=== PATIENT | female | born 1960 | race African-American/Black ===

== ENCOUNTER 2018-12-26 08:50 | Inpatient (IN) | payer OTHER ==
[~2018-12-26] VITALS: Ht 167.6 cm; Wt 52.2 kg
[2018-12-26] MEDS ORDERED: ONDANSETRON HCL 4MG/2ML INJ IV STA (09:34)
[2018-12-26] MEDS ORDERED: MORPHINE SULFATE 4 MG/ML CPJ (NOT FOR IM USE) IV STA (09:34)
[2018-12-26] MEDS ORDERED: SODIUM CHLORIDE 0.9% 1,000 ML IV ONE (09:34)
[2018-12-26 11:00] LABS: BASOPHILS % 0.3 % (0.0-2.0); EOSINOPHILS % 0.1 % (0.0-5.0); LYMPHOCYTES % 11.7 % (20.0-50.0); MEAN CORPUSCULAR HEMOGLOBIN 37.2 pg (28.0-32.0); MEAN CORPUSCULAR VOLUME 111.1 fL (81.0-99.0); MEAN PLATELET VOLUME 8.4 fl (7.4-10.4); MONOCYTES % 4.7 % (2.0-8.0); NEUTROPHILS % 83.2 % (40.0-76.0); PLATELET 70 x1000/uL (130-400); RED BLOOD CELL COUNT 2.43 mill/uL (4.2-5.4); RED CELL DISTRIBUTION WIDTH 13.6 % (11.6-14.6)
[2018-12-26 11:08] LABS: CHLORIDE 85 mEq/L (98-107)
[2018-12-26 11:14] LABS: PLATELET ESTIMATE DECREASED
[2018-12-26] MEDS ORDERED: PIPERACILLIN SODIUM/TAZOBACTAM 4.5 G in DEXT 5% WATER 100 ML IV SCH (12:00)
[2018-12-26] MEDS ORDERED: IPRATROPIUM/ALBUTEROL 0.5-3(2.5)MG/3ML NEB INH PRN (13:15)
[2018-12-26] MEDS ORDERED: LORAZEPAM 2MG/ML CPJ IV PRN (13:15)
[2018-12-26] MEDS ORDERED: CLONIDINE 0.1MG TABLET PO PRN (13:15)
[2018-12-26] MEDS ORDERED: ONDANSETRON HCL 4MG/2ML INJ IV PRN (13:15)
[2018-12-26] MEDS ORDERED: DIPHENHYDRAMINE 50MG/ML VIAL IV PRN (13:15)
[2018-12-26] MEDS ORDERED: HYDROMORPHONE HCL/PF 2MG/ML CPJ IV PRN (13:15)
[2018-12-26] MEDS ORDERED: MVI, ADULT NO.1 10 ML, FOLIC ACID 1 MG in SODIUM CHLORIDE 0.9% 1,000 ML IV NR ×3 (16:45)
[2018-12-26 17:58] LABS: VITAMIN B12 SERUM >2000 pg/mL pg/mL (211-911)
[2018-12-26 17:59] LABS: HEPATITIS B SURFACE ANTIGEN NEGATIVE
[2018-12-26 18:27] LABS: HEPATITIS A AB IGM NEGATIVE (NEGATIVE)
[2018-12-26 18:28] LABS: FOLIC ACID (FOLATE) SERUM > 20.00 ng/mL (>5.38)
[2018-12-26 20:00] VITALS: BP_SYST 100; BP_SYST 102; BP_DIAS 57; BP_DIAS 61
[2018-12-26] MEDS ORDERED: MAGNESIUM 4 G PREMIX 100 ML IV NR (21:00)
[2018-12-27] VITALS (7 sets, daily range): BP systolic 98–132; BP diastolic 53–82
[2018-12-27 07:58] LABS: BASOPHILS % 0.6 % (0.0-2.0); CHLORIDE 88 mEq/L (98-107); EOSINOPHILS % 1.7 % (0.0-5.0); HEMATOCRIT. 26.4 % (36.0-48.0); HEMOGLOBIN. 8.9 g/dL (12.0-16.0); LYMPHOCYTES % 12.1 % (20.0-50.0); MEAN CORPUSCULAR HEMOGLOBIN 36.8 pg (28.0-32.0); MEAN CORPUSCULAR VOLUME 108.8 fL (81.0-99.0); MONOCYTES % 4.8 % (2.0-8.0); NEUTROPHILS % 80.8 % (40.0-76.0); PLATELET 114 x1000/uL (130-400); RED BLOOD CELL COUNT 2.43 mill/uL (4.2-5.4); RED CELL DISTRIBUTION WIDTH 13.7 % (11.6-14.6)
[2018-12-27 08:05] LABS: AMYLASE 221 IU/L (25-115)
[2018-12-27] MEDS: PANTOPRAZOLE SODIUM 40 MG/VIAL IV SCH (09:32)
[2018-12-27] MEDS ORDERED: KCL 20MEQ/100ML PREMIX 100 ML IV NR ×2 (11:00→12:00)
[2018-12-27] MEDS: DEXT 5%/0.45% NACL 1000ML 1,000 ML IV SCH (13:56)
[2018-12-28] VITALS: BP 114/70
[2018-12-28] MEDS: DEXT 5%/0.45% NACL 1000ML 1,000 ML IV SCH ×3 (00:07→10:03)
[2018-12-28] MEDS: PIPERACILLIN/TAZ 2.25G PREMIX 50 ML IV SCH ×2 (01:00→10:03)
[2018-12-28 08:00] VITALS: BP 112/69
[2018-12-28] MEDS: PANTOPRAZOLE SODIUM 40 MG/VIAL IV SCH (10:03)
[2018-12-28 12:00] VITALS: BP 129/76
[2018-12-28 13:18] LABS: CHLORIDE 89 mEq/L (98-107)
[2018-12-28 13:26] VITALS: BP 129/76
[2018-12-28] MEDS: POTASSIUM CHLORIDE 20MEQ TABLET SR PO SCH ×3 (13:43→15:33)
== END 2018-12-28 16:10 | disposition home or self-care (01) | DRG 432 ==
LOC: ER 08:50 → 8WST 12:28 → EDBEDREQ 12:30 → ENRESERV 17:39
PROVIDERS: ADMIT Internal Medicine; ATTEND Internal Medicine
DX: K70.10 Alcoholic hepatitis without ascites (principal); K85.10 Biliary acute pancreatitis without necrosis or infection; K85.90 Acute pancreatitis without necrosis or infection, unspecified; E44.1 Mild protein-calorie malnutrition; Z68.1 Body mass index [BMI] 19.9 or less, adult; N17.9 Acute kidney failure, unspecified; K80.70 Calculus of gallbladder and bile duct without cholecystitis without obstruction; R74.0 Nonspecific elevation of levels of transaminase and lactic acid dehydrogenase [LDH]; E16.2 Hypoglycemia, unspecified; D53.9 Nutritional anemia, unspecified; I10 Essential (primary) hypertension; D75.89 Other specified diseases of blood and blood-forming organs; G62.9 Polyneuropathy, unspecified; J45.909 Unspecified asthma, uncomplicated; K57.90 Diverticulosis of intestine, part unspecified, without perforation or abscess without bleeding; K76.0 Fatty (change of) liver, not elsewhere classified; K80.20 Calculus of gallbladder without cholecystitis without obstruction; Z82.49 Family history of ischemic heart disease and other diseases of the circulatory system; Z80.9 Family history of malignant neoplasm, unspecified
CPT/HCPCS: 36415; 71045; 74176; 74181; 76700; 78227; 80076; 82150; 82248; 82607; 82746; 82962; 83735; 83880; 84478; 84484; 86705; 86709; 86803; 87340; 93005; 93970; 96365; 96375; 99291; A9537; C9113; J2270; J2405; J2543; J3475; J3480; J3490; J7030; J7060